=== PATIENT | male | born 1950 | race Caucasian/White ===

== ENCOUNTER 2024-09-16 21:01 | Emergency (ER) | payer MEDICARE, OTHER ==
[~2024-09-16] VITALS: Ht 177.8 cm; Wt 113.4 kg
[~2024-09-16 21:01] MED LIST: ASA; LISINOPRIL; METFORMIN; PREVACID
[2024-09-16 22:17] VITALS: PULSE 71; RESP 16; TEMP 98
[2024-09-17 01:57] VITALS: BP 141/68; PULSE 78; RESP 18; TEMP 98; O2SAT 98
== END 2024-09-17 00:25 | disposition home or self-care (01) ==
LOC: FSED 21:14
DX: S01.112A Laceration without foreign body of left eyelid and periocular area, initial encounter (principal); W01.0XXA Fall on same level from slipping, tripping and stumbling without subsequent striking against object, initial encounter; Y93.01 Activity, walking, marching and hiking; Y92.89 Other specified places as the place of occurrence of the external cause; R51.9 Headache, unspecified; I10 Essential (primary) hypertension; E11.9 Type 2 diabetes mellitus without complications; E78.00 Pure hypercholesterolemia, unspecified
CPT/HCPCS: 70450; 70486; 72125; 99284